=== PATIENT | female | born 1980 | race Caucasian/White ===

== ENCOUNTER 2017-01-06 08:06 | Observation (INO) | payer OTHER ==
[~2017-01-06] VITALS: Ht 170.2 cm; Wt 69.8 kg
[2017-01-06] VITALS (11 sets, daily range): BP systolic 102–120; BP diastolic 44–78; PULSE 51–86; RESP 12–20; O2SAT 98–100
[~2017-01-06 08:06] MED LIST: Benzocaine TP; Dexamethasone 4 mg/mL Inj ONE; EPHEDrine/NS 5 mg/mL 5 mL Syringe ONE; Glycopyrrolate 0.2 MG/ML 1mL Inj ONE; Ibuprofen PO; Lanolin TP; Lidocaine PF 1% 30 mL Inj ONE; MetoCLOpramide 5 mg/mL 2 mL Inj ONE; Neostigmine 1 mg/mL 10 mL Inj ONE; Ondansetron 2 mg/mL 2 mL Inj ONE; Phenylephrine/NS 100 mCg/mL 10 mL Syringe IVPUSH ONE; Rocuronium 10 mg/mL 5 mL Inj ONE; TUCPAD TP; fentaNYL-PF 50 mCg/mL 2 mL Inj ONE
--- NOTE | 2017-01-06 08:31 | ED.REPORT ---
HPI- Female Date of Service Jan 06, 2017 ED Provider: Haile Muhammad MD A 36 year old female with a history of placental abruption, two natural births and IUD use presents to the ED complaining of abdominal cramping. The pt experienced sharp, sudden abdominal cramping three days ago that was significantly worse than menstrual cramping. This passed and she experienced dull cramping for the rest of the day. The pt experienced continuing intermittent cramping, lightheadedness, and nausea with very light vaginal bleeding, though she denies vomiting. She also denies fever, cough, diarrhea or dysuria. The pt took 800 mg of ibuprofen yesterday with some relief. She then took a test at home this morning, which was positive. Nursing Notes Stated Complaint: SEVERE CRAMPS/IUD CONCERNS Chief Complaint: Female Abdominal Pain Nursing Notes Reviewed: Yes Allergies: Coded Allergies: No Known Allergies (Unverified Allergy, Unknown, 01/06/17) Scheduled PRN ([Benzocaine]) 1 SPRAY/GM SPRAY 1 SPRAY TP PRN PRN PRN for perineal pain ([Ibuprofen]) 800 MG TABLET 800 MG PO Q6H PRN PRN For Pain ([Lanolin]) 14 APPLIC/7 GM OINT 1 APPLIC TP PRN PRN PRN apply to nipples Witch Yudith/Glycerin (A.e.r Pads) 12 Towelette/Pkg Towelette 1 TOWELETTE TP PRN PRN PRN for perineal pain General Time Seen by MD: 08:30 Chief Complaint Abdominal pain... Hx Obtained From: Patient Arrived By: Walk-in Sudden in Onset?: Yes Onset Occurred: 3 days ago Symptom Duration: Since onset Recent Healthcare: No recent hospitalization, Recent doctor visit Similar Sx Previous: Yes Past Medical History Past Medical History Notes: blood type: AB positive (11/01/2011) Past Medical History two natural births Past Surgical History none reported Smoking History Never Smoker Social History Other Social History: Good social support Ambulatory Status Independent Review of Systems Constitutional: Denies: Fever GI: Reports: Abdominal pain, Nausea, Denies: Diarrhea, Vomiting Female: Reports: Vaginal bleeding - abnl, Denies: Dysuria Musculoskeletal: Denies: Back pain Skin: Denies Rash Complete sys rev & neg: except as marked. Respiratory: Denies: Non-productive cough Cardiovascular: Denies: Chest pain Physical Exam Initial Vital Signs Vital Signs (First) Date Time Temp Pulse Resp B/P Pulse Ox O2 Delivery O2 Flow Rate FiO2 01/06/17 08:08 36.8 75 15 120/78 100 Room Air Initial VS: Reviewed Female Genitourinary: Exam deferred General/Constitutional: Awake, Alert Respiratory / Chest: Atraumatic, Breath sounds NL, Breath sounds = bilat, No respiratory distress Cardiovascular: Heart rate NL, Regular rhythm, Heart sounds NL Abdomen: Atraumatic, Soft abdominal tenderness with no rebound or mass Back: Atraumatic, Full range of motion Skin: Atraumatic, Color NL, No rash, Warm, Dry Head / Eyes: Atraumatic, Normocephalic, PERRL, EOMI ENT: Atraumatic, Airway patent, Mucous membranes moist Neck: Atraumatic, Supple, Full range of motion Upper Extremity / MS: Atraumatic, Full range of motion Lower Extremity / Pelvis / MS: Atraumatic, Full range of motion Neurologic: Oriented X3, Speech NL, No motor deficits, No sensory deficits Psychiatric: Affect NL, Mood NL Interpretation & Diagnostics Interpretation & Diagnostics: Pelvis US: IMPRESSION: 1. In this patient with a beta-hCG of 1300, a moderate amount of complex free fluid and no identifiable gestational sac in the uterus ectopic with bleeding to cause a complex fluid would be the #1 concern and diagnosis. 2. Because of the relatively low beta hCG early intrauterine gestation cannot be completely excluded. However, to explain the fluid that would need to be a second ectopic or ruptured cyst. This would complicate the diagnosis because of more additional features. Dictated by: Juan Jose Gaytan M.D. on 01/06/2017 at 12:45 Approved by: Juan Jose Gaytan M.D. on 01/06/2017 at 13:06 Lab Results Interpretation Result Diagram: 01/06/1725 01/06/17 0925 Test 01/06/17 09:16 01/06/17 09:25 Urine Color Yellow (YELLOW) Urine Appearance Clear (CLEAR,HAZY) Urine pH 6.0 (5.0-8.0) Urine Specific Morris 1.020 (1.003-1.035) Urine Protein Negativemg/dL (NEG,TRACE) Urine Glucose (UA) Negativemg/dL (NEGATIVE) Urine Ketones 40mg/dL (NEGATIVE) Urine Occult Blood Moderate (NEGATIVE) Urine Nitrite Negative (NEGATIVE) Urine Bilirubin Negative (NEGATIVE) Urine Urobilinogen Normalmg/dL (NORMAL) Urine Leukocyte Esterase Negative (NEGATIVE) Urine RBC 0-2/hpf (0-2) Urine WBC 0-5/hpf (0-5) Urine Epithelial Cells Few/hpf (NONE-MOD) Urine Crystals None seen (NONE SEEN) Urine Bacteria None/hpf (NONE-FEW) Urine Hyaline Casts None/lpf (NONE) Urine Granular Casts None seen (NONE SEEN) Urine Waxy Casts None seen (NONE SEEN) Urine Red Blood Cell Casts None seen (NONE SEEN) Urine White Blood Cell Casts None seen (NONE SEEN) Urine Mucus Present (None Seen) Urine Trichomonas None seen (NONE SEEN) Urine Yeast None (NONE SEEN) Urinalysis Comment None Urine Culture Reflexed Not indicated White Blood Count 7.6th/mm3 (3.8-10.1) Red Blood Count 4.55mil/mm3 (3.90-5.20) Hemoglobin 13.1g/dL (12.0-15.6) Hematocrit 39.6% (35.0-46.0) Mean Corpuscular Volume 87.0fL (81-100) Mean Corpuscular Hemoglobin 28.8pg (27.0-35.0) Mean Corpuscular Hemoglobin Concent 33.1% (32.0-37.0) Red Cell Distribution Width 12.8% (12.3-15.4) Platelet Count 223bil/L (150-400) Neutrophils (%) (Auto) 76.5% (40-74) Lymphocytes (%) (Auto) 12.7% (14-46) Monocytes (%) (Auto) 9.9% (4-12) Eosinophils (%) (Auto) 0.4% (0-5) Basophils (%) (Auto) 0.1% (0-3) Sodium Level 136mEq/L (134-144) Potassium Level 4.2mEq/L (3.5-5.2) Chloride Level 100mEq/L (97-108) Carbon Dioxide Level 22mmol/L (18-29) Blood Urea Nitrogen 8mg/dL (6-20) Creatinine 0.56mg/dL (0.57-1.00) Estimat Glomerular Filtration Rate 178mL/min (>59) Glucose Level 101mg/dL (60-99) Calcium Level 8.7mg/dL (8.5-10.1) Total Bilirubin 0.5mg/dL (0.0-1.2) Aspartate Amino Transf (AST/SGOT) 15U/L (0-50) Alanine Aminotransferase (ALT/SGPT) 12U/L (0-32) Alkaline Phosphatase 48U/L (25-150) Total Protein 6.9g/dL (6.4-8.4) Albumin 3.6g/dL (3.4-5.0) HCG Beta Subunit 1332mIU/mL Hold Dean Top Tube Received (Received) Re-Eval/Medical Decision Source of Hx: Old records Re-Evaluation/Progress #1: Time of Eval: 10:32 Patient Status: Condition improved Re-Evaluation/Progress Note: Pt rechecked, who is comfrotable and accompanied by her . Lab results are discussed. Re-Evaluation/Progress #2: Time of Eval: 13:08 Patient Status: Condition improved Re-Evaluation/Progress Note: Pt rechecked, who is comfortable. She is informed of her US results. Re-Evaluation/Progress #3: Time of Eval: 13:20 Patient Status: Condition improved Re-Evaluation/Progress Note: Pt rechecked, who is resting. Diagnosis and treatment plan are further discussed. Re-Evaluation/Progress #4: Time of Eval: 14:26 Re-Evaluation/Progress Note: Pt rechecked, who is feeling well. Plan for consultation with surgeon is discussed. Re-Evaluation/Progress #5: Time of Eval: 15:15 Re-Evaluation/Progress Note: Patient sitting comfortably on the examination table. Dr. Rothman is in the room talking with the patient trying to decide what the best plan moving forward will be. Consultation #1: Referral / Consult Name: Ion Medrano MD Call Returned at: 12:38 Note: Spoke with EDDIE Kelley, regarding pt's case. Dr. Medrano agrees to see the pt in the clinic in two days. Consultation #2: Referral / Consult Name: Jose Rothman MD Call Returned at: 13:10 Life Advisor: Agrees with eval, Agrees with plan Note: Spoke with Dr. Bloomfield, FORESTRY FARM LABORER, regarding pt's case. Dr. Rothman will review the pt's radiology results. Consultation #3: Call Returned at: 13:26 Note: Spoke with anesthesia technician regarding pt's case and consult with Dr. Rothman. OB and radiology plan to repeat ultrasound. Counseled Regarding: Diagnosis, Lab results, Need for follow-up, When/why to return to ED Discharge & Departure Impression: Primary Impression: Abdominal pain Additional Impressions: Abdominal fluid collection Disposition: Home Discharge Condition All VS Reviewed: Yes Condition: Stable Patient Instructions: Ectopic (ED) Additional Instructions: It is not clear whether or not you have an ectopic or an intrauterine that is not yet identifiable. You have discussed the case in detail with Dr. Rothman. Please follow-up according to the instructions he is given you. Referrals: Yevgeniy Aguayo MD (PCP) Scribe Attestation Portions of this note were transcribed by Gay uD. I, Dr. Muhammad personally performed the history, physical exam and medical decision-making; I reviewed and confirmed the accuracy of the information in the transcribed note. Signed by: Manuelito Napier, 01/06/17 and 0857. copies to: Yevgeniy Aguayo MD, Kirk H MD Jan 06, 2017 08:31 GAY DU Jan 06, 2017 08:50
[2017-01-06 09:42] LABS: APPEARANCE,URINE CLEAR (CLEAR,HAZY); COLOR,URINE YELLOW (YELLOW); OCCULT BLOOD,URINE MODERATE (NEGATIVE); UROBILINOGEN,URINE NORMAL (NORMAL)
[2017-01-06 09:58] LABS: BASOPHILS % (AUTO) 0.1 % (0-3); EOSINOPHILS % (AUTO) 0.4 % (0-5); MONOCYTES % (AUTO) 9.9 % (4-12); Mean Corpuscular Hemoglobin 28.8 pg (27.0-35.0); NEUTROPHILS % (AUTO) 76.5 % (40-74); Platelet Count 223 bil/L (150-400)
--- NOTE | 2017-01-06 13:07 | DRSVH ---
PROCEDURE: US PELVIC SONOGRAM + TRANSVAGINAL SONOGRAM INDICATIONS: pelvic pain, beta hCG 1300 TECHNIQUE: Real-time scanning was performed of the pelvic organs, with image documentation. Additional endovagi nal scanning was necessary due to incomplete visualization of the adnexal and endometrial structures by transabdominal scanning. COMPARISON: None. FINDINGS: Transabdominal scanning: Limited scanning through the kidneys shows no hydronephrosis. No pathologi c free abdominal or pelvic fluid. Endovaginal scanning: Uterus: Uterus is normal in size. The endometrium contains echo pattern consistent with an IUD. A mi nimal amount of fluid in the endometrial canal may be present. Gestational sac is not identified. Bot h ovaries are seen. Ovaries: Ovaries show normal follicular type cysts. The left shows some increased vascularity around it. On the left there is mass thought to be a tubular structure with slow moving fluid. The appearanc e is most consistent with some dilated venous vessels. There is a moderate amount of fluid in the cul-de-sac and about both ovaries. The fluid is complex. C linically I am told there is no reason to suspect PID. Therefore complex fluid would be most likely b lood. IMPRESSION: 1. In this patient with a beta-hCG of 1300, a moderate amount of complex free fluid and no identifiab le gestational sac in the uterus ectopic with bleeding to cause a complex fluid would be th e #1 concern and diagnosis. 2. Because of the relatively low beta hCG early intrauterine gestation cannot be completely excluded. However, to explain the fluid that would need to be a second ectopic or ruptured cyst. Thi s would complicate the diagnosis because of more additional features. Dictated by: Juan Jose Gaytan M.D. on 01/06/2017 at 12:45 Approved by: Juan Jose Gaytan M.D. on 01/06/2017 at 13:06
[2017-01-06] MEDS ORDERED: IBUP800T28 PO (16:43)
[2017-01-06] MEDS ORDERED: Lactated Ringer's 1,000 ML IV SCH ×2 (17:05→20:40)
--- NOTE | 2017-01-06 17:48 | NUR ---
Admit To [facility] room 1010 at 16:55. Report received from RADHA Sabillon RN. Admit, including med rec, done by admit nurse in ER. Pt is alert and oriented, denies nausea and abd cramping at this time. Reports minimal vaginal spotting. VSS. is at bedside, plans to take personal belongings and clothing with him.
--- NOTE | 2017-01-06 18:33 | HP ---
[address] [address] HISTORY AND PHYSICAL PATIENT: RYLEE GRAY : 1980 MR#: [id number] ADMIT: 01/06/2017 JOB ID: [id number] DATE: 01/06/2017 GYNECOLOGY CONSULTATION: REQUESTING PHYSICIAN: Emergency Department physician, Dr. Haile Muhammad. HISTORY OF PRESENT ILLNESS: This patient is a 36-year-old, G3, P2, AB0, woman, who came in the emergency department reporting two episodes of 20-30 minutes of pain, once on Sunday morning, and once on Sunday evening, and with only lesser pain this morning, i.e. on Sunday. She reports that the pain was significant to where she felt pale and maybe a little dizzy and thought she might vomit. The pain was across her entire lower abdomen. With only a little cramping this morning and without dizziness, yet with some bright red spotting/light bleeding today, decision was made by patient to come to the emergency department for evaluation regarding the recent pain as well as bleeding, all in the setting of a positive test at home in spite of Mirena IUD in situ. It was placed 2-1/2 years ago by Ara Masterson, nurse credit collector. The patient does not have regular periods but does spot every 2-4 weeks. Emergency Department physician evaluated the patient and obtained quantitative beta hCG that was in the 1300+ range and also did an ultrasound that demonstrated no obvious intrauterine or obvious extrauterine , yet with complex free fluid consistent with blood. I was thus called as FERMENTER windows consultant to evaluate the patient and to help determine what would be the next diagnostic and/or therapeutic maneuver in the setting of positive test and recent bleeding and pain. PHYSICAL EXAMINATION: Initial temperature 36.8, pulse 75, respirations 15, blood pressure 120/78. Neck: No thyroid mass. Lungs are clear to auscultation and percussion. Heart: Regular in rate and rhythm. Abdomen is soft. Nontender in upper quadrants and across the mid abdomen and nontender in the left lower quadrant. However, mild tenderness in the suprapubic area and moderate tenderness in the right lower quadrant. No obvious palpable mass. No rebound tenderness. Pelvic examination: Vulva, vagina and cervix: No obvious concerning epithelial abnormality. Very small amount of blood noted at the cervix. IUD string noted at about 0.5 inch in length. No obvious mass appreciated. There was no left pelvic area tenderness, mild plus mid/uterine tenderness, and moderate plus right pelvic area tenderness. There was mild cervical motion tenderness towards the left, yet moderate plus on the right. DIAGNOSTIC DATA: Admission hemoglobin 13.1, platelets 223, white blood cell count 7.6. Quantitative beta hCG level of 1332. Pelvic ultrasound -- discussed and viewed with Dr. Gaytan, radiologist. There was noted Mirena IUD in situ, some complex fluid within the uterine cavity (no definitive pseudo sac or true gestational sac), and there was also no obvious intrauterine or extrauterine . There was some free fluid, complex, suggestive of either blood products (or purulence), thought to be the former as there has been no fever or elevated white blood cell count, etc. This complex fluid was in the cul-de-sac region as well as up around the ovaries and tubes as well as anterior to the uterine fundus. There was no fluid in the gutter areas or elsewhere. Reportedly, ultrasound exam was uncomfortable with probe in the pelvic region. IMPRESSION: 1. Early , without definitive intrauterine or extrauterine findings of by ultrasound, although suspect ectopic on the basis of pain episodes, irregular bleeding, and suspected blood in the pelvis by ultrasound. 2. Mirena intrauterine device in situ, having failed, contraceptive standpoint. 3. Reproductive history. Prior vaginal delivery x2 (last at 2-1/2 years ago, apparently at bed rest from 20 weeks on due to abruption). Other uncomplicated. Now current one, see #1. 4. Additional surgical history: a. 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 b. Laser surgery for detached retina. c. Tonsillectomy and adenoidectomy. 5. No known drug allergies. 6. No reported medical illnesses. 7. No reported medication use. 8. No prior pelvic infection. PLAN: 1. FERMENTER consultation for Dr. Haile Muhammad, Emergency Department physician. 2. Pelvic examination. 3. Review the ultrasound with the radiologist. 4. Discussed with the patient the combination of findings of Mirena intrauterine device in situ and positive test, and suspected ectopic (probably tubal ) on the basis of pain episodes plus bleeding irregularity plus complex fluid throughout the pelvis per crusher machine operator. More is I cannot guarantee that there is a tubal or ectopic present, and there is a possibility of ruptured ovarian cyst (although not seen), bleeding (or infection) from some other cause, the likely thing is ectopic . I discussed with patient and her the options of observation with repeating the ultrasound and labs (particularly beta hCG in a couple days) versus laparoscopic assessment today for diagnostic and for therapeutic purposes via laparoscopy (or even laparotomy if needed). Patient favored surgical approach rather than wondering what was going on, although she realizes that we cannot always 100% of the time see an ectopic at laparoscopy. She realizes that if we see one or a ruptured ovarian cyst or other fixable problems then we will surgically address this probably via laparoscopy, although there is a possibility of mini laparotomy or full laparotomy incision. She realizes our target will be to identify the source of bleeding, correct it, and preserve tubes and ovaries if feasible and reasonable. However, if tubal preservation is not deemed to be reasonable and with its preservation would likely lead to higher chance of ectopic, then affected tube would be removed if tubal confirmed. The patient and understand that with tubal preservation or excision, there is a higher chance ectopic will occur on the other side. The patient realizes that we do not know exactly what we will find until we get inside, but we do plan on identifying source of the bleeding, resolving the problem if possible, and trying to stay close to laparoscopy or small mini-laparotomy rather than enlarged incision. Patient realizes there are no guarantees, regarding complications in surgery which could include bleeding, infection, injury to urinary tract and bowel, anesthetic risks, potential future ectopic , etc. The patient also understands that we cannot guarantee that we will find an ectopic if present, although we will search for it. She would like the Mirena intrauterine device out as well while under anesthetic and this is reasonable. She realizes that if there happened to be an intrauterine , that there is probably a 50% chance of miscarriage by leaving the intrauterine device in place as well as a 50% chance of miscarriage by taking it out. She requests its removal. All questions answered, the patient has signed informed consent for surgery, i.e. laparoscopy, possible laparotomy, possible salpingectomy, and Mirena intrauterine device removal. 5. We will certainly look at the health and anatomy of the other tube and preserve them if feasible for potential future childbearing. Although ectopic suspected, I suspect that this is more on the basis of having intrauterine device in place as opposed to some sort of other tubal structural or physiologic liability. All questions have been answered thoroughly. 6. The patient wants to go home this evening, we will see how she is feeling and what is the hour. Hopefully she will be able to be discharged. I think she do well with surgery although will need to see if laparotomy is required, as this would impact length of hospital stay. 7. If for some reason ectopic is not identified, then we will serially follow both HCGs and ultrasounds. KEKE
--- NOTE | 2017-01-06 19:12 | NUR ---
Pt. off floor to OR Pt. left [facility] floor to OR at 190 transported via gurney by OR RNs. by side.
[2017-01-06] MEDS ORDERED: Bupivacaine-MPF 0.5% 30 mL Inj INFILTRATE ONE (20:17)
[2017-01-06] MEDS ORDERED: Lactated Ringer's 1,000 ML IV ONE ×3 (20:17→22:15)
[2017-01-06] MEDS ORDERED: Dexamethasone 4 mg/mL Inj IVPUSH PRN (20:40)
[2017-01-06] MEDS ORDERED: Lactated Ringer's 500 ML IV PRN (20:40)
[2017-01-06] MEDS ORDERED: Phenylephrine 10,000 mCg/mL Inj IVPUSH PRN (20:40)
[2017-01-06] MEDS ORDERED: MetoCLOpramide 5 mg/mL 2 mL Inj IVPUSH PRN ×2 (20:40→22:10)
[2017-01-06] MEDS ORDERED: EPHEDrine Sulfate 50 mg/mL Inj IVPUSH PRN (20:40)
[2017-01-06] MEDS ORDERED: Ondansetron 2 mg/mL 2 mL Inj IVPUSH PRN ×2 (20:40→22:10)
[2017-01-06] MEDS ORDERED: fentaNYL-PF 50 mCg/mL 2 mL Inj IVPUSH PRN (20:40)
[2017-01-06] MEDS ORDERED: HYDROmorphone 1 mg/mL Inj IVPUSH PRN ×2 (20:40→22:10)
--- NOTE | 2017-01-06 20:41 | PCM.HPANE ---
Patient Data Surgeon Admitting Provider:Jose Rothman MD Attending Provider:Jose Rothman MD Primary Care Physician:Yevgeniy Aguayo MD Other Provider: Reason for Visit Ectopic Ht/WT & BMI Height (Feet): 5 Height (Inches): 7.00 Weight (Kilograms): 69.800 Body Mass Index 24.15 Allergies Coded Allergies: No Known Allergies (Unverified Allergy, Unknown, 01/06/17) Past Anesthesia History Anesthesia History: Denies:: Anesthesia Reactions Diabetes History Hx Diabetes?: No Medications Active Scripts Witch Yudith/Glycerin (A.e.r Pads)12 Towelette/Pkg Towelette1 Towelette TP PRN PRN for perineal pain #1 TOWELETTE Prov:Zelalem Ara Kenia [facility] 05/31/14 [Lanolin] (Lansinoh Ointment)14 APPLIC/7 GM OINT No Conflict Check1 Applic TP PRN PRN apply to nipples #1 TUBE Prov:Ara Masterson [facility] 05/31/14 [Ibuprofen] (Motrin)800 MG TABLET No Conflict [id number] Mg PO Q6H PRN For Pain # 30 TABLET Prov:Zelalem Ara Aquino [facility] 05/31/14 [Benzocaine] (Dermoplast 20% [place])1 SPRAY/GM SPRAY No Conflict Check1 [place] TP PRN PRN for perineal pain #1 CAN Prov:Ara Masterson Kenia [facility] 05/31/14 Reported Medications Ibuprofen 800 Mg [id number] Mg PO TID PRN For Pain Ref 0 01/06/17 History History of ENT Problems?: No Hx of Heart Problems?: No Cardiovascular History: Denies:: Congestive Heart Failure Hypertension Hx of Respiratory Problem?: No Respiratory History: Denies:: Tuberculosis Female Hx: Positive for:: Currently (3-5 weeks? ectopic) Other Skin Pertinent History: Moles; seeing dermatology Hx Musculoskeletal Problems?: No Hx of Psycho/Social Problems?: No Hx Surgeries?: Yes (tonsils removed, placental ubruption/no surgery, detached left retina) History Blood Transfusions: Positive for:: Accept Blood Products? Denies:: Blood Transfuse Reaction Blood Transfusions Hx Diabetes: No Hx Alcohol Use: YesAlcoholic Drinks Per Day: occassional, maybe once a week. Hx Substance Use: No Smoking Status: Never Smoker Have You Smoked inLast 12 mo: No Stop/Bang Treated for Sleep Apnea?: No Do You Have a CPAP Machine?: No S-Snoring: Do You Snore Loudly: No T-Tired: feel tired, fatigued: No O-Obsered: Observed not breath: No P-Blood Pressure: treated: No B- Body Mass Index > 35 kg/m2: No A- Age over 50: No N- Neck Large Circumference: No G- Gender Male: No MARSHALL Total Score: 0 Risk Assessment Category Category 1A: Patient has history of documented sleep apnea, and HAS NOT received any narcotic, sedative or anesthesia administration during this stay. Category 1B: Patient has history of documented sleep apnea, and HAS received any narcotic , sedative or anesthesia administration during this stay Category 2: Patient has SUSPECTED Obstructive Sleep Apnea, and HAS received any narcotic , sedative or anesthesia administration during this stay. Category 3: Patient has SUSPECTED Obstructive Sleep Apnea and HAS NOT received narcotic, sedative or anesthesia administration during this stay. Category 4: Outpatient in Procedural Areas with known sleep apnea or who screen positive for High Risk via the STOP/BANG questionnaire. Exam Exam Vital Signs Vital Signs Date Time Temp Pulse Resp B/P Pulse Ox O2 Delivery O2 Flow Rate FiO2 01/06/17 16:58 36.6 51 16 115/75 100 Room Air General Appearance: Alert, Oriented X3, Cooperative, No Acute Distress HEENT/AIRWAY: MP 2 Lungs: Clear to Auscultation Heart: Exam Unremarkable Meds/Labs/Diagnostics Admission Meds Current Medications Ibuprofen 800 mg 800 mg ONCE ONCE PO Last administered on 01/06/17 10:24; Start 01/06/17 at 10:20; Stop 01/06/17 at 10:21; Status DC Lactated Ringer's (Lr) 1,000 ml @ 150 mls/hr Q6H40M IV Last administered on 17:32; Start 01/06/17 at 17:05 Labs Test 01/06/17 09:16 01/06/17 09:25 Urine Color Yellow (YELLOW) Urine Appearance Clear (CLEAR,HAZY) Urine pH 6.0 (5.0-8.0) Urine Specific [place] 1.020 (1.003-1.035) Urine Protein Negativemg/dL (NEG,TRACE) Urine Glucose (UA) Negativemg/dL (NEGATIVE) Urine Ketones 40mg/dL (NEGATIVE) Urine Occult Blood Moderate (NEGATIVE) Urine Nitrite Negative (NEGATIVE) Urine Bilirubin Negative (NEGATIVE) Urine Urobilinogen Normalmg/dL (NORMAL) Urine Leukocyte Esterase Negative (NEGATIVE) Urine RBC 0-2/hpf (0-2) Urine WBC 0-5/hpf (0-5) Urine Epithelial Cells Few/hpf (NONE-MOD) Urine Crystals None seen (NONE SEEN) Urine Bacteria None/hpf (NONE-FEW) Urine Hyaline Casts None/lpf (NONE) Urine Granular Casts None seen (NONE SEEN) Urine Waxy Casts None seen (NONE SEEN) Urine Red Blood Cell Casts None seen (NONE SEEN) Urine White Blood Cell Casts None seen (NONE SEEN) Urine Mucus Present (None Seen) Urine Trichomonas None seen (NONE SEEN) Urine Yeast None (NONE SEEN) Urinalysis Comment None Urine Culture Reflexed Not indicated White Blood Count 7.6th/mm3 (3.8-10.1) Red Blood Count 4.55mil/mm3 (3.90-5.20) Hemoglobin 13.1g/dL (12.0-15.6) Hematocrit 39.6% (35.0-46.0) Mean Corpuscular Volume 87.0fL (81-100) Mean Corpuscular Hemoglobin 28.8pg (27.0-35.0) Mean Corpuscular Hemoglobin Concent 33.1% (32.0-37.0) Red Cell Distribution Width 12.8% (12.3-15.4) Platelet Count 223bil/L (150-400) Neutrophils (%) (Auto) 76.5% (40-74) Lymphocytes (%) (Auto) 12.7% (14-46) Monocytes (%) (Auto) 9.9% (4-12) Eosinophils (%) (Auto) 0.4% (0-5) Basophils (%) (Auto) 0.1% (0-3) Sodium Level 136mEq/L (134-144) Potassium Level 4.2mEq/L (3.5-5.2) Chloride Level 100mEq/L (97-108) Carbon Dioxide Level 22mmol/L (18-29) Blood Urea Nitrogen 8mg/dL (6-20) Creatinine 0.56mg/dL (0.57-1.00) Estimat Glomerular Filtration Rate 178mL/min (>59) Glucose Level 101mg/dL (60-99) Calcium Level 8.7mg/dL (8.5-10.1) Total Bilirubin 0.5mg/dL (0.0-1.2) Aspartate Amino Transf (AST/SGOT) 15U/L (0-50) Alanine Aminotransferase (ALT/SGPT) 12U/L (0-32) Alkaline Phosphatase 48U/L (25-150) Total Protein 6.9g/dL (6.4-8.4) Albumin 3.6g/dL (3.4-5.0) HCG Beta Subunit 1332mIU/mL Hold Dean Top Tube Received (Received) Plan Impression Patient chart reviewed, patient interviewed and anesthestic plan with risks, benefits, and alternatives discussed, and informed consent obtained. ASA Physical Status: ASA2 Mod Systemic Disease Anesthetic Plan: GA Bene/Risks/Altern/Consents: Yes HP Complete Prior to Induction: Yes Herbie Allison MD Jan 06, 2017 18:49
--- NOTE | 2017-01-06 21:33 | PCM.ANEP1 ---
Post Anesthesia Phase 1 PACU Phase 1 Assessment Vital Signs Vital Signs Date Time Temp Pulse Resp B/P Pulse Ox O2 Delivery O2 Flow Rate FiO2 01/06/17 21:31 86 17 109/61 99 Room Air 01/06/17 21:30 37.3 85 17 113/61 98 Room Air 01/06/17 16:58 36.6 51 16 115/75 100 Room Air Anesthetic Administered: GA Level of Alertness: Awake, talking ALVES's with Equal Strength: Yes Pain: No (Nurse is aware.) Nausea or Vomiting: No Oxygen Delivery: Room Air Lungs: Clear to Auscultation Dermatome Level: Full Sensation Herbie Allison MD Jan 06, 2017 21:33
--- NOTE | 2017-01-06 21:56 | PCM.ANEP2 ---
Post Anesthesia Evaluation ASA/CMS Post Anesthesia VS in Patient's Normal Range?: Yes Resp Stable; Airway Patent?: Yes CV Function & Hydration Stable: Yes Mental Status Recovered?: Yes Pain control Satisfactory?: Yes N/V Control Satisfactory?: Yes Herbie Allison MD Jan 06, 2017 21:56
--- NOTE | 2017-01-06 22:45 | NUR ---
Post Op Pt. arrived from PACU at 2228. Pt. was alert and oriented x3. Pt's peripheral IV intact and patent. Pt. denies pain, and is hungry. Lap sites c/d/i. Will continue to monitor.
[2017-01-07] MEDS ORDERED: OXYC1TAB24 PO (00:08)
--- NOTE | 2017-01-07 00:56 | NUR ---
Discharge Pt. left at 0051 with . Pt. had voided. Pt. was free of nausea, and tolerating crackers, soup, and water well. Pt. was able to ambulate to bathroom well. VSS. Peripheral IV d/c intact. Pt. was educated on discharge instructions.
--- NOTE | 2017-01-07 14:47 | OP ---
[address] [address] OPERATIVE REPORT PATIENT: RYLEE GRAY : 1980 MR#: [id number] ADMIT: 01/06/2017 JOB ID: [id number] DATE OF SURGERY: 01/06/2017 SURGEON: Jose Rothman MD. MOTORBOAT OPERATOR: None. ANESTHESIA: General. PREOPERATIVE DIAGNOSIS(ES): Ectopic . POSTOPERATIVE DIAGNOSIS(ES): Ectopic . PROCEDURES PERFORMED: Laparoscopic right tubal excision with removal of ectopic . INDICATIONS FOR SURGERY: This patient was found to have positive test with Mirena IUD in situ. Whereas she did not have intrauterine or ectopic identified by ultrasound, she has had pain, some light bleeding, and ultrasound demonstration of suspected blood around the uterus, adnexa and pelvis. Due to greater tenderness on pelvic examination on the right side, this patient has been for right tubal/ectopic , and in light of suspected bleeding, internal bleeding, surgery was recommended for diagnostic and therapeutic purposes. FINDINGS AT SURGERY: Upon laparoscopic evaluation, there was noted approximately 200 cc of red blood light and dark red blood clots in the pelvic region, anterior and posterior to the uterus. The uterus was found to be normal as were both ovaries and the left Fallopian tube. The right fallopian tube however contained ectopic in its midportion with tubal distention via blood and clots for greater than half of the length of the fallopian tube, and with large dark clots adherent to the fimbriated end of the tube. It was thus apparent that internal bleeding was not from tubal rupture but from bleeding through the tube and from the fimbriated end. At procedure's close, blood and clots had been removed as much as possible, and right fallopian tube with ectopic therein had been excised, felt to be a prudent maneuver in the setting of tubal with significant involvement of the tube (greater than half to 2/3 by and blood and clots) plus the consideration of very normal-appearing left fallopian tube. We discussed the possibility of removing the right fallopian tube if the left side appeared completely normal and if it was felt that conservative therapy on the right fallopian tube could incur increased risk of tubal recurrence. Note also procedure's close there was no internal bleeding occurring, uterus, both ovaries and left fallopian tube remained, and patient should do well postoperatively. She has remained interested in discharge to home following the surgery. I explained to patient and both preop and postop that she is at risk for ectopic again in that she has had one although she does not have residual damage, right fallopian tube. Left fallopian tube appears normal and there may well have been an impact from Mirena IUD for tubal occurrence that may not be a factor in the future. We will discuss further at a later time future fertility if they so choose, the risks, and the importance of checking a test right away and notifying physician's office if positive. PROCEDURE: The patient was placed in supine position on the operating table and general anesthesia was induced. She was then very carefully into the dorsal lithotomy position and prepped in the usual sterile manner. Appropriate time-out was then taken. A tenaculum was placed on the anterior cervical lip and Mirena intrauterine device strings were noted as had been noted in the emergency department. IUD was removed as per discussion between the patient and her and I, as it had failed from a contraceptive standpoint, and also to remove it in case simply nonvisualized intrauterine , although felt to be unlikely, and it certainly note that ectopic was indeed identified and surgically treated as described in his operative report. Note that after ectopic was noted laparoscopically, Kumari cannula was secured in place within the cervix/uterus and the tenaculum was removed from the cervix. The patient was then directed to the abdomen, where a short semilunar infraumbilical incision was made through the skin, subcutaneous tissues and fascial layer. The peritoneal cavity was then carefully entered using blunt dissection with finger and trocar sheath was secured in place. Laparoscope was introduced, CO2 and light sources connected, and video camera attached. Video laparoscopy was accomplished with findings as noted above. Short transverse incision was then made at the hairline at the midline and a 5 mm trocar sheath was secured in place and probe advanced to facilitate visualization of ectopic and other pelvic structures. Note that blood and clots were suctioned from the pelvis after aggressive irrigation. It was determined that the uterus, left ovary, left fallopian tube and right ovary were normal, and the that the right fallopian tube contained ectopic and was containing significant blood and clots, see discussion above. Decision was made to remove the right fallopian tube containing the ectopic . Using longer LigaSure coag cutting instrument through the operating channel of the angled laparoscope, right fallopian tube was excised with serial electrocoagulation and incision of attachment to structures beneath the fallopian tube, yet leaving the blood supply to the right ovary. Ultimately, fallopian tube was electrocoagulated and divided at the cornual region and there was no bleeding noted along the tubal excision line. There was no internal bleeding occurring at any site, and uterus and ovaries and left fallopian tube remained. The trocar sheath was removed from the lower abdomen and there was no bleeding occurring as noted under direct visualization. CO2 gas was allowed to escape and no bleeding developed in the pelvic region at any site and subumbilical trocar sheath was then removed and all instrument, needle and sponge counts were found to be correct at this point as well as at others during the case. The fascial incision was then closed in pursestring fashion using 0-Vicryl suture and each incision was closed with interrupted vertical mattress stitches of 4-0 Vicryl suture in subepithelial vertical mattress fashion. Mastisol was then applied to the skin and after drying Steri-Strips were applied for extra skin support. Bandages were then placed across the Steri-Strips. Attention was then directed to the vaginal region where the Kumari cannula was removed and was noted to be intact. There were no instruments or sponges in the vaginal region and final instrument/needle/sponge counts were found to be correct. Procedure was thus complete. Patient returned to supine position and awakened and then taken to recovery room. ESTIMATED BLOOD LOSS: Scant from the procedure (less than 5 cc). Note that there was about 200 cc of blood and clots in the pelvis as noted at the time of laparoscopic evaluation. There were no complications. PROGNOSIS: Good for surgical recovery
--- NOTE | 2017-01-10 13:47 | PATH ---
SURGICAL PATHOLOGY Attending Physician:Jose Rothman M.D CASE STATUS: Signed Out PATIENT NAME: RYLEE GRAY PID: [id number] : 1980 DATE COLLECTED:01/06/2017 00:00 SPECIMEN: Fallopian Tube, Ectopic CLINICAL HISTORY: ECTOPIC 1). RIGHT FALLOPIAN TUBE WITH ECTOPIC FINAL DIAGNOSIS: Right Fallopian Tube: Immature chorionic villi (products of conception), ectopic . ICD10: O00.8 GROSS DESCRIPTION: The specimen is received in formalin, labeled with the patient's name, sublabeled as right fallopian tube w/ectopic and consists of a fimbriated fallopian tube (length-7.2 cm, diameter-up to 1.6 cm). The serosa is dark maroon smooth and shiny. The lumen is proximally dilated and contains red-brown solid firm hemorrhagic material. No parts are identified. Section code: (A-F) fallopian tube, serially sectioned; (G-H) fimbria, bivalved, one half in each cassette. Specimen entirely submitted. 01/09/17 ICD-9 CODES: CPT CODES: 1: 49046 Electronically Signed Out David Burton MD [facility] [address], [place] [address] Technical component performed at [facility], [facility] [address], [place], [address]
--- NOTE | 2017-01-11 22:05 | DIS ---
[address] [address] DISCHARGE SUMMARY PATIENT: RYLEE GRAY : 1980 MR#: [id number] ADMIT: 01/06/2017 JOB ID: [id number] DIS: 01/07/2017 NOTE: I have dictated discharge summary at the request of [facility] Physician Coordinator, Ramona Lezama in Health Information Management, although the patient was discharged to home a few hours following surgery in typical fashion for outpatient type surgeries, procedures which typically do not require a discharge summary. DISCHARGE DIAGNOSIS: Right tubal with hemoperitoneum, surgically corrected. PROCEDURES PERFORMED: Laparoscopic right salpingectomy with excision of tubal . HOSPITAL COURSE: The patient presented to the [facility] Emergency Department on January 06, 2017 and was found to have suspected right tubal with intraperitoneal bleeding recently. I was called for OUTBOARD MOTOR MECHANIC consultation as on-call physician and ultimately had a discussion with the patient and her in regards to surgical intervention (recommended) versus observation. The patient and her were agreeable to surgery and this was undertaken. Right tubal resolved by surgical excision. The patient was then sent home in a few hours stable, with reasonable vitals, with reasonable pain management, ambulating and voiding and holding down fluids. DISCHARGE PROGRAM: This patient will be discharged to home on January 07, 2017 to follow up with Dr. Rothman in a few weeks for postoperative checkup. She will observe pelvic rest and not do any strenuous exercise during the next one month. DISCHARGE MEDICATIONS: Include pain medications, prescription written.
== END 2017-01-07 00:52 | disposition home or self-care (01) ==
LOC: SED 08:06 → OSC 16:20
PROVIDERS: ADMIT Obstetrics & Gynecology; ATTEND Obstetrics & Gynecology
DX: O00.10 Tubal pregnancy without intrauterine pregnancy (principal); K66.1 Hemoperitoneum; Z97.5 Presence of (intrauterine) contraceptive device
CPT/HCPCS: 36415; 58301; 59151; 76830; 76856; 80053; 81000; 81025; 84702; 85025; 99285; G0378; J1100; J1885; J2370; J2405; J2710; J2765; J3010; J7120